=== PATIENT | male | born 1990 | race African-American/Black ===

== ENCOUNTER 2017-11-18 08:30 | Emergency (ER) | payer SELFPAY ==
--- NOTE | 2017-11-18 09:23 | ERNOTE ---
Time Seen by Provider: 11/18/17 09:00 Stated Complaint: COUGH Presenting Symptoms:: cough, other - shortness of breath and wheezing Source: patient Exam Limitations: no limitations Immunizations: IMMUNIZATION HX Immunizations Up to Date Yes History of Influenza Vaccine No Hx Pneumococcal Vaccination No Allergies/Adverse Reactions: Allergies NSAIDS (Non-Steroidal Anti-Inflamma Adverse Reaction (Verified 11/18/17 08:59) Home Medications: HOME MEDICATIONS Albuterol Sulfate [Ventolin HFA] 2 puff IH Q6H PRN 7 Days inhaler 11/18/17 [ Last Taken Unknown] Azithromycin [Zithromax] 250 mg PO DAILY #6 tablet 11/18/17 [Last Taken Unknown] predniSONE [Deltasone] 20 mg PO BID #10 tablet 11/18/17 [Last Taken Unknown] - History of Present Ilness Narrative: Patient is noticed over the past several days that he started to develop wheezing, similar to when he had asthma as a much younger man. He denies any fever simply cough and some shortness of breath. Timing: other - past several days Severity: moderate Frequency/Possible Cause: Reports: other - last episode he believes he was 15 years old Modifying Factors - Improves: Reports: nothing Modifying Factors - Worsens: Reports: nothing Associated Symptoms: Reports: cough, shortness of breath, wheezing Review of Systems - Review of Systems Constitutional: Present: See HPI EYE: Present: no symptoms reported ENT: Present: no symptoms reported Respiratory: Present: shortness of breath, cough, wheezing Cardiology: Present: no symptoms reported Gastrointestinal/Abdominal: Present: no symptoms reported Genitourinary: Present: no symptoms reported Musculoskeletal: Present: no symptoms reported Skin: Present: no symptoms reported Neurological: Present: no symptoms reported Endocrine: Present: no symptoms reported Hematologic/Lymphatic: Present: no symptoms reported Psych: Present: no symptoms reported - Patient's Past Medical History Patient History - Medical: No pertinent hx Patient History - Cardiac/Respiratory: No pertinent hx, Asthma - appeared to resolve about age 15 though Patient History - Cancer: No Hx of Cancer Patient History - Surgical Procedures: No surgical history Patient History - Other: None - Social History Living Situations: home Psych History: No pertinent hx Smoking Status: Never smoker Alcohol Use: none Drug Use: none - Immunizations Immunizations Up to Date: Yes Hx Pneumococcal Vaccination: No History of Influenza Vaccine: No Physical Exam - Physical Exam General Appearance: Present: wd/wn, alert, moderate distress Head Exam: Present: normal inspection, no evidence of injury Eye Exam: Normal inspection: bilateral, PERRL: bilateral Ears, Nose, Throat: Present: normal ENT inspection, H, normal pharynx Neck: Present: normal inspection, nontender Respiratory: Present: no accessory muscle use, chest nontender, respiratory distress, rhonchi, wheezing Cardiovascular/Chest: Present: regular rate, rhythm, no murmur, normal peripheral pulses Gastrointestinal/Abdominal: Present: normal bowel sounds, nontender, nondistended, soft, no organomegaly Rectal Exam: Present: deferred Back Exam: Present: normal inspection, normal range of motion Extremity Exam: Present: normal inspection, non-tender, no edema, normal range of motion Neurological Exam: Present: alert, oriented, normal mood/affect Skin Exam: Present: normal color, warm/dry Lymphatic Exam: Present: no adenopathy ED Progress - Results and Orders Patient's Lab Results:: I have reviewed the patient's lab results. - Vital Signs Patient's Vital Signs:: I have reviewed the patient's vital signs. Vital Signs: Vital Signs 11/18/17 08:40 Temperature 36.9 C Pulse Rate 65 Respiratory 16 Rate Blood Pressure 144/99 O2 Sat by Pulse 98 Oximetry - X-Ray X-Ray #1 X-Ray: chest Interpretation: Reviewed by me - Progress/Reassessment Chief Complaint: Cough Progress:: Improved Plan - Plan Plan: The patient appears to have an asthmatic bronchitis and will be treated with a Z -Theodore, prednisone and a Ventolin inhaler. He is encouraged to follow-up with his family doctor. Departure Clinical Impression: Asthmatic bronchitis Qualifiers: Asthma severity: moderate Asthma persistence: persistent Asthma complication type: with acute exacerbation Qualified Code(s): J45.41 - Moderate persistent asthma with (acute) exacerbation - Departure Disposition: Home self-care Condition: Good Instructions: Bronchospasm, Adult, [id number], Acute Bronchitis Prescriptions: Albuterol Sulfate [Ventolin HFA] 2 puff IH Q6H PRN 7 Days inhaler PRN Reason: Wheezing Azithromycin [Zithromax] 250 mg PO DAILY #6 tablet predniSONE [Deltasone] 20 mg PO BID #10 tablet
[2017-11-18] MEDS ORDERED: ALBUTEROL SULFATE/IPRATROPIUM 3 ML NEBU IH ONE ×2 (09:27→09:30)
[2017-11-18] MEDS ORDERED: predniSONE 20 MG TABLET PO ONE (09:27)
[2017-11-18] MEDS ORDERED: predniSONE 20 MG TABLET ONE (09:30)
[2017-11-18 09:51] VITALS: BP 148/73
== END 2017-11-18 10:24 | disposition home or self-care (01) ==
LOC: ER 08:30
DX: J45.41 Moderate persistent asthma with (acute) exacerbation